=== PATIENT | male | born 1940 | race Caucasian/White ===

== ENCOUNTER 2019-12-16 20:20 | Emergency (ER) | payer OTHER, MEDICARE ==
[~2019-12-16] VITALS: Ht 180.3 cm; Wt 83.9 kg
[~2019-12-16 20:20] MED LIST: HYDACE5 PO; HYDCHL12.5 PO; LEVSOD25; METO25ER PO; OMEP20ER; VERA240ERB
[2019-12-16 21:33] LABS: BASOPHILS ABSOLUTE AUTO 0.02 K/mm3 (0.00-0.23); BASOPHILS PERCENT AUTO 0 % (0-2); EOSINOPHILS ABSOLUTE AUTO 0.17 K/mm3 (0.00-0.68); EOSINOPHILS PERCENT AUTO 3 % (0-6); Hematocrit 42.8 % (37.0-53.0); Hemoglobin 14.5 g/dL (13.5-17.5); IMMATURE GRAN ABSOLUTE AUTO 0.01 K/mm3 (0.00-0.10); IMMATURE GRAN PERCENT AUTO 0 % (0-1); LYMPHOCYTES ABSOLUTE AUTO 1.27 K/mm3 (0.84-5.20); LYMPHOCYTES PERCENT AUTO 25 % (21-46); MONOCYTES ABSOLUTE AUTO 0.38 K/mm3 (0.16-1.47); MONOCYTES PERCENT AUTO 7 % (4-13); Mean Corpuscular HGB Conc 33.9 g/dL (31.5-36.5); Mean Corpuscular Volume 88 fL (80-100); Mean Platelet Volume 10.5 fL (9.1-12.4); NEUTROPHILS PERCENT AUTO 64 % (41-73); Platelet Count 140 K/mm3 (150-400); RDW Standard Deviation 39.4 fL (35.1-46.3); Red Blood Cell Count 4.84 M/mm3 (4.30-5.90); White Blood Cell Count 5.15 K/mm3 (4.00-11.30)
[2019-12-16 21:55] LABS: Albumin, Blood 3.7 g/dL (3.4-5.0); Albumin/Globulin Ratio 1.3 (0.8-1.8); Bilirubin, Total 0.3 mg/dL (0.1-1.0); Bun/Creatinine Ratio 18.1 (12.0-20.0); Calcium, Blood 8.8 mg/dL (8.5-10.1); Creatinine, Blood 1.49 mg/dL (0.60-1.20); Globulin, Blood 2.9 g/dL (2.2-4.0); Potassium, Blood 3.4 mmol/L (3.5-5.5); Total Protein, Blood 6.6 g/dL (6.4-8.2)
[2019-12-16] MEDS ORDERED: LEVSOD75 PO (22:08)
[2019-12-16] MEDS ORDERED: Aspir 8181 MG PO (22:08)
[2019-12-16] MEDS ORDERED: CALICUM PO (22:09)
[2019-12-16] MEDS ORDERED: MOTION RELIEF25 MG PO (22:32)
== END 2019-12-16 22:43 | disposition home or self-care (01) ==
LOC: ER 20:20
PROVIDERS: Physician Assistant
DX: R55 Syncope and collapse (principal); K21.9 Gastro-esophageal reflux disease without esophagitis; I10 Essential (primary) hypertension; E03.9 Hypothyroidism, unspecified; Z79.899 Other long term (current) drug therapy
CPT/HCPCS: 36415; 70450; 80053; 84484; 85025; 93005; 93010; 99284-25

== ENCOUNTER 2020-10-27 06:52 | Day surgery (SDC) | payer MEDICARE ==
[~2020-10-27] VITALS: Ht 180.3 cm; Wt 88.4 kg
[~2020-10-27 06:52] MED LIST changes: +Aspir 8181 MG PO; +CALICUM PO; +LEVSOD75 PO; +MOTION RELIEF25 MG PO
--- NOTE | 2020-10-27 07:27 | NUR ---
10/27/20 0727 Chen Serrano 0719- ONE TETRACAINE DROP ADMINISTERED INTO L EYE 07- PLEDGET PLACED IN L LOWER EYE LID AND EYE WAS TAPED CLOSED WITH PAPER TAPE
[2020-10-27] MEDS ORDERED: OMEP20ER PO (07:31)
[2020-11-19] MEDS ORDERED: CALCIUM 600 +1 EA11 PO (09:39)
[2020-11-19] MEDS ORDERED: LEVO-T125 MC1 PO (09:39)
[2020-11-19] MEDS ORDERED: PRED FORTE5 M1 (09:40)
== END 2020-10-27 09:20 | disposition home or self-care (01) ==
LOC: ORSCSDS 06:52
PROVIDERS: Ophthalmology
PROC: 08RK3JZ Replacement of Left Lens with Synthetic Substitute, Percutaneous Approach (ICD-10-PCS; principal; 2020-10-27 08:00)
DX: H25.12 Age-related nuclear cataract, left eye (principal); I10 Essential (primary) hypertension; K21.9 Gastro-esophageal reflux disease without esophagitis; Z79.899 Other long term (current) drug therapy; Z79.82 Long term (current) use of aspirin
CPT/HCPCS: A9270; J2001; J2250; J3010; J3301; J7040; V2632

== ENCOUNTER 2020-11-26 09:53 | Day surgery (SDC) | payer MEDICARE ==
[~2020-11-26 09:53] MED LIST changes: +CALCIUM 600 +1 EA11 PO; +LEVO-T125 MC1 PO; +OMEP20ER PO; +PRED FORTE5 M1
== END 2020-11-26 10:30 | disposition home or self-care (01) ==
LOC: ORSCSDS 09:53
DX: H25.11 Age-related nuclear cataract, right eye (principal); Z53.9 Procedure and treatment not carried out, unspecified reason
CPT/HCPCS: A9270; J2001; J2250; J3010; J3301; J7040

== ENCOUNTER 2021-09-16 12:11 | Day surgery (SDC) | payer OTHER ==
[~2021-09-16] VITALS: Ht 180.3 cm; Wt 79.7 kg
[~2021-09-16 12:11] MED LIST changes: +CODACE30 PO; +COMPAZINE10 MG PO; +HYDR1TAB94 PO; +LEVSOD25 PO; +Protonix40 MG PO
--- NOTE | 2021-09-16 12:39 | NUR ---
09/16/21 [email or web address] Mame Edward CALL LIGHT WITHIN REACH. EYE DROP AT 1235 PLEDGETT AT 1237
--- NOTE | 2021-09-16 14:31 | NUR ---
09/16/21 1431 Chandana Iraheta LENSE IMPLANTED [id number] 13.5D ACRYSOF IQ TORIC IOL SN [id number] EXP 05-04-2025 RIGHT EYE
== END 2021-09-16 15:01 | disposition home or self-care (01) ==
LOC: ORSCSDS 12:11
PROVIDERS: Ophthalmology
PROC: 08RJ3JZ Replacement of Right Lens with Synthetic Substitute, Percutaneous Approach (ICD-10-PCS; principal; 2021-09-16 13:30)
DX: H25.11 Age-related nuclear cataract, right eye (principal); I10 Essential (primary) hypertension; I48.91 Unspecified atrial fibrillation; E03.9 Hypothyroidism, unspecified; Z79.899 Other long term (current) drug therapy; Z79.82 Long term (current) use of aspirin
CPT/HCPCS: J2001; J2250; J3010; J3301; J7040; V2632

== ENCOUNTER 2021-10-15 02:10 | Emergency (ER) | payer OTHER ==
[~2021-10-15] VITALS: Ht 180.3 cm; Wt 77.1 kg
[2021-10-15 02:42] LABS: BASOPHILS ABSOLUTE AUTO 0.02 K/mm3 (0.00-0.23); BASOPHILS PERCENT AUTO 0 % (0-2); EOSINOPHILS ABSOLUTE AUTO 0.18 K/mm3 (0.00-0.68); EOSINOPHILS PERCENT AUTO 4 % (0-6); Hemoglobin 13.7 g/dL (13.5-17.5); IMMATURE GRAN ABSOLUTE AUTO 0.01 K/mm3 (0.00-0.10); IMMATURE GRAN PERCENT AUTO 0 % (0-1); LYMPHOCYTES ABSOLUTE AUTO 1.78 K/mm3 (0.84-5.20); LYMPHOCYTES PERCENT AUTO 34 % (21-46); MONOCYTES ABSOLUTE AUTO 0.46 K/mm3 (0.16-1.47); MONOCYTES PERCENT AUTO 9 % (4-13); Mean Corpuscular HGB 29.2 pg (26.0-34.0); Mean Corpuscular HGB Conc 33.4 g/dL (31.5-36.5); Mean Corpuscular Volume 87 fL (80-100); Mean Platelet Volume 10.1 fL (9.1-12.4); NEUTROPHILS ABSOLUTE AUTO 2.73 K/mm3 (1.96-9.15); NEUTROPHILS PERCENT AUTO 53 % (41-73); Platelet Count 175 K/mm3 (150-400); RDW Coefficient Variation 13.4 % (11.7-14.2); Red Blood Cell Count 4.69 M/mm3 (4.30-5.90); White Blood Cell Count 5.18 K/mm3 (4.00-11.30)
[2021-10-15 03:11] LABS: Albumin, Blood 3.1 g/dL (3.4-5.0); Albumin/Globulin Ratio 0.9 (0.8-1.8); Bilirubin, Total 0.7 mg/dL (0.1-1.0); Bun/Creatinine Ratio 19.3 (12.0-20.0); Calcium, Blood 8.8 mg/dL (8.5-10.1); Creatinine, Blood 1.61 mg/dL (0.60-1.20); Globulin, Blood 3.6 g/dL (2.2-4.0); Potassium, Blood 3.3 mmol/L (3.5-5.5); Total Protein, Blood 6.7 g/dL (6.4-8.2)
== END 2021-10-15 04:03 | disposition home or self-care (01) ==
LOC: ER 02:10
PROVIDERS: Student in an Organized Health Care Education/Training Program
DX: K80.50 Calculus of bile duct without cholangitis or cholecystitis without obstruction (principal); I10 Essential (primary) hypertension; K21.9 Gastro-esophageal reflux disease without esophagitis; Z79.82 Long term (current) use of aspirin; Z79.899 Other long term (current) drug therapy; E03.9 Hypothyroidism, unspecified; I48.91 Unspecified atrial fibrillation
CPT/HCPCS: 36415; 76705; 80053; 83690; 85025; 93005; 93010; 96374; 99284-25; A9270; J1885

== ENCOUNTER 2021-12-02 08:23 | Day surgery (SDC) | payer OTHER ==
[~2021-12-02] VITALS: Ht 180.3 cm; Wt 77.9 kg
--- NOTE | 2021-12-02 13:31 | NUR ---
PT TO STEP. STERI STRIPS D/I. C/O MID ABD PAIN 02/20. TOLERATING WATER AND CRACKERS.
--- NOTE | 2021-12-02 14:04 | NUR ---
PT STATES NO RELIEF IN PAIN WITH PAIN PILL. STATES HE WOULD LIKE TO WAIT A BIT BEFORE TAKING ANOTHER PAIN PILL.
--- NOTE | 2021-12-02 14:13 | NUR ---
PT STATES HE DOES NOT FEEL HE SHOULD GO HOME DUE TO PAIN. STATE HE WOULD PREFER TO STAY THE NIGHT. DR. ROLDAN INFORMED OF PT STATUS BY COLOR CORRECTOR. VERBAL ORDER GIVEN FOR PT TO BE ADMITTED.
--- NOTE | 2021-12-02 14:26 | NUR ---
REPORT GIVEN TO FRANCK VILLAFANA RN.
--- NOTE | 2021-12-02 15:02 | NUR ---
PATIENT CAME BACK FROM DAY SURGERY TODAY 12/02/21 AT 1430. POD 0 LAP TORITO PATIENT IS ALERT AND ORIENTED X4. VS ARE WNL AND IS ON RA. PATIENT REPORTS A 7/10 PAIN AT THIS TIME. AWAITING DR. ROLDAN TO SEE IF WE CAN HAVE ANOTHER IV PAIN MEDICATION. HIS 4 LAP SITES ON HIS ABD HAVE STERI STRIPS ARE C/D/I. CALL LIGHT WITHIN REACH.
--- NOTE | 2021-12-02 16:35 | NUR ---
1630 ASSUMED CARE OF DERECK. PT REPORTS PAIN 01/21. ABD INCISIONS INTACT WITHOUT DRAINAGE
--- NOTE | 2021-12-02 16:38 | NUR ---
1610 ASSUMED CARE OF PATINET. PT REPORTS ABD PAIN OF 6-7/10/ FENTANYL 25 MCG GIVEN. PT ASSISTED TO BR WITH STANDBY ASSIST TO VOID CLEAR YELLOW URINE
--- NOTE | 2021-12-02 18:15 | NUR ---
SUMMARY PT REPORTS PAIN IS ADEQUATELY CONTROLLED AT 4/10. BELINDA PO FOOD AND FLUIDS WITHOUT NAUSEA. VOIDING CLEAR YELLOW URINE. ABD INCISIONS INTACT WITHOUT DRAINAGE
--- NOTE | 2021-12-03 04:46 | NUR ---
PT POST OP DAY 1 FOR LAP MARCOS, PT IS A&OX4, INDEPENDENT IN ROOM AND IS ABLE TO MAKE NEEDS KNOWN. LAP SITES LOOK GOOD AND ARE CLEAN AND DRY. PT ABLE TO TOLERATE SOLID FOODS AND LIQUIDS WITH NO COMPLAINTS OF NAUSEA. COMPLAINS OF PAIN THIS AM, MEDICATED WITH PRN NORCO. PT ABLE TO VOID THIS SHIFT WITH NO ISSUES. SLEEPS 7+ HOURS. WILL CONTINUE TO MONITOR.
[2021-12-03] MEDS ORDERED: DOCU100 PO (09:26)
[2021-12-03] MEDS ORDERED: HYDR1TAB94 PO (09:27)
[2021-12-03] MEDS ORDERED: MOTRIN IB200 MG (09:27)
--- NOTE | 2021-12-03 10:47 | NUR ---
DISCHARGE NOTE: PATIENT WAS EDUCATED ON DISCHARGE INSTRUCTIONS. PATIENT VERBALIZED UNDERSTANDING OF INSTRUCTIONS. HARD PERSCRIPTION WAS PLACED IN INSTRUCTIONS FOLDER. IV WAS TAKEN OUT AND WNL. PAIN WAS MANAGED WITH PO PAIN MEDICATIONS. HIS 4 LAP SITES ON ABD ARE C/D/I. TOLERATING PO INTAKE AND IS VOIDING. PATIENT IS DRESSED AND HAS ITEMS IN THE ROOM GATHERED. HE IS BEING WHEELCHAIRED OUT TO HIS FAMILY [employer] CAR TO BE TAKEN HOME.
== END 2021-12-03 10:44 | disposition home or self-care (01) ==
LOC: ORSCMMR 08:23 → ORD 10:00 → ORSCMMR 10:00 → SURS 14:49 → ORSCMMR 12-03 10:44
PROC: BF031ZZ Plain Radiography of Gallbladder and Bile Ducts using Low Osmolar Contrast (ICD-10-PCS; principal; 2021-12-03)
PROC: 0FT44ZZ Resection of Gallbladder, Percutaneous Endoscopic Approach (ICD-10-PCS; principal; 2021-12-03)
DX: K80.10 Calculus of gallbladder with chronic cholecystitis without obstruction (principal); I10 Essential (primary) hypertension; K21.9 Gastro-esophageal reflux disease without esophagitis; I48.91 Unspecified atrial fibrillation; Z79.82 Long term (current) use of aspirin; Z79.899 Other long term (current) drug therapy
CPT/HCPCS: 74300; 88304; A9270; C1729; J0690; J1100; J1885; J2370; J2405; J2704; J3010; J7120

== ENCOUNTER 2022-08-31 06:55 | Emergency (ER) | payer OTHER ==
[~2022-08-31] VITALS: Ht 180.3 cm; Wt 81.7 kg
[~2022-08-31 06:55] MED LIST changes: +DOCU100 PO; +MOTRIN IB200 MG
== END 2022-08-31 11:38 | disposition home or self-care (01) ==
LOC: ER 06:55
DX: K59.00 Constipation, unspecified (principal); K21.9 Gastro-esophageal reflux disease without esophagitis; E03.9 Hypothyroidism, unspecified; Z79.82 Long term (current) use of aspirin; Z79.890 Hormone replacement therapy
CPT/HCPCS: 74018

== ENCOUNTER → 2023-03-20 | Outpatient (CLI) | payer MEDICARE | LOC: LAB SHORT 15:27 → LAB 15:27 | DX: L08.0 Pyoderma (principal) | CPT/HCPCS: 87070; 87205 ==

== ENCOUNTER 2023-08-07 00:29 | Emergency (ER) | payer OTHER ==
[~2023-08-07] VITALS: Ht 180.3 cm; Wt 81.7 kg
[2023-08-07 02:08] LABS: BASOPHILS ABSOLUTE AUTO 0.01 K/mm3 (0.00-0.23); BASOPHILS PERCENT AUTO 0 % (0-2); EOSINOPHILS ABSOLUTE AUTO 0.01 K/mm3 (0.00-0.68); EOSINOPHILS PERCENT AUTO 0 % (0-6); Hematocrit 45.7 % (37.0-53.0); Hemoglobin 15.4 g/dL (13.5-17.5); IMMATURE GRAN ABSOLUTE AUTO 0.02 K/mm3 (0.00-0.10); IMMATURE GRAN PERCENT AUTO 0 % (0-1); LYMPHOCYTES ABSOLUTE AUTO 0.44 K/mm3 (0.84-5.20); LYMPHOCYTES PERCENT AUTO 7 % (21-46); MONOCYTES ABSOLUTE AUTO 0.45 K/mm3 (0.16-1.47); MONOCYTES PERCENT AUTO 7 % (4-13); Mean Corpuscular HGB 30.4 pg (26.0-34.0); Mean Corpuscular HGB Conc 33.7 g/dL (31.5-36.5); Mean Corpuscular Volume 90 fL (80-100); Mean Platelet Volume 10.4 fL (9.1-12.4); NEUTROPHILS ABSOLUTE AUTO 5.87 K/mm3 (1.96-9.15); NEUTROPHILS PERCENT AUTO 86 % (41-73); Platelet Count 108 K/mm3 (150-400); RDW Coefficient Variation 13.1 % (11.7-14.2); RDW Standard Deviation 42.8 fL (35.1-46.3); Red Blood Cell Count 5.06 M/mm3 (4.30-5.90)
[2023-08-07 02:14] LABS: Albumin, Blood 3.5 g/dL (3.4-5.0); Albumin/Globulin Ratio 1.1 (0.8-1.8); Bilirubin, Total 1.1 mg/dL (0.1-1.0); Bun/Creatinine Ratio 14.8 (12.0-20.0); Calcium, Blood 8.4 mg/dL (8.5-10.1); Creatinine, Blood 1.83 mg/dL (0.60-1.20); Globulin, Blood 3.2 g/dL (2.2-4.0); Magnesium, Blood 1.5 mg/dL (1.6-2.4); Potassium, Blood 3.5 mmol/L (3.5-5.5); Total Protein, Blood 6.7 g/dL (6.4-8.2)
[2023-08-07 02:37] LABS: Influenza A, PCR NEGATIVE (NEGATIVE); Influenza B, PCR NEGATIVE (NEGATIVE); Resp Syncytial Virus, PCR NEGATIVE (NEGATIVE)
[2023-08-07 03:01] LABS: SARS-Cov-2 (COVID-19) PCR, MMC POSITIVE (NEGATIVE)
[2023-08-07 05:15] VITALS: BP 141/72
== END 2023-08-07 05:23 | disposition home or self-care (01) ==
LOC: ER 00:29
PROVIDERS: Student in an Organized Health Care Education/Training Program
DX: U07.1 COVID-19 (principal); I10 Essential (primary) hypertension; K21.9 Gastro-esophageal reflux disease without esophagitis; E03.9 Hypothyroidism, unspecified; Z87.19 Personal history of other diseases of the digestive system; N40.0 Benign prostatic hyperplasia without lower urinary tract symptoms; I48.91 Unspecified atrial fibrillation; I47.10 Supraventricular tachycardia, unspecified; Z79.82 Long term (current) use of aspirin; Z79.899 Other long term (current) drug therapy
CPT/HCPCS: 0241U; 71046; 80053; 83735; 85025; 93005; 93010; J3475

== ENCOUNTER 2024-07-21 13:51 | Emergency (ER) | payer OTHER ==
[~2024-07-21] VITALS: Ht 180.3 cm; Wt 83.1 kg
[2024-07-21] MEDS ORDERED: Methocarbamol 500 MG Tab PO ONE (14:05)
[2024-07-21] MEDS ORDERED: Ketorolac Tromethamine 15mg Vial IV ONE (14:10)
[2024-07-21 14:17] LABS: BASOPHILS ABSOLUTE AUTO 0.04 K/mm3 (0.00-0.23); BASOPHILS PERCENT AUTO 0 % (0-2); EOSINOPHILS ABSOLUTE AUTO 0.16 K/mm3 (0.00-0.68); EOSINOPHILS PERCENT AUTO 2 % (0-6); Hematocrit 44.9 % (37.0-53.0); Hemoglobin 15.2 g/dL (13.5-17.5); IMMATURE GRAN ABSOLUTE AUTO 0.02 K/mm3 (0.00-0.10); IMMATURE GRAN PERCENT AUTO 0 % (0-1); LYMPHOCYTES ABSOLUTE AUTO 3.03 K/mm3 (0.84-5.20); LYMPHOCYTES PERCENT AUTO 32 % (21-46); MONOCYTES ABSOLUTE AUTO 0.86 K/mm3 (0.16-1.47); MONOCYTES PERCENT AUTO 9 % (4-13); Mean Corpuscular HGB 30.5 pg (26.0-34.0); Mean Corpuscular HGB Conc 33.9 g/dL (31.5-36.5); Mean Corpuscular Volume 90 fL (80-100); Mean Platelet Volume 9.5 fL (9.1-12.4); NEUTROPHILS ABSOLUTE AUTO 5.37 K/mm3 (1.96-9.15); NEUTROPHILS PERCENT AUTO 57 % (41-73); Platelet Count 259 K/mm3 (150-400); RDW Standard Deviation 39.7 fL (35.1-46.3); Red Blood Cell Count 4.99 M/mm3 (4.30-5.90); White Blood Cell Count 9.48 K/mm3 (4.00-11.30)
[2024-07-21 14:44] LABS: Albumin, Blood 3.5 g/dL (3.4-5.0); Albumin/Globulin Ratio 0.9 (0.8-1.8); Bilirubin, Total 0.6 mg/dL (0.1-1.0); Bun/Creatinine Ratio 18.1 (12.0-20.0); Calcium, Blood 9.5 mg/dL (8.5-10.1); Creatinine, Blood 1.93 mg/dL (0.60-1.20); Globulin, Blood 3.9 g/dL (2.2-4.0); Potassium, Blood 3.5 mmol/L (3.5-5.5); Total Protein, Blood 7.4 g/dL (6.4-8.2)
[2024-07-21] MEDS ORDERED: NS 1,000 ML IV SCH (17:00)
[2024-07-21 17:45] LABS: Anti-Xa UFH, PHA Monitoring <0.10 IU/mL; International Normalized Ratio 1.04; Prothrombin Time Results 11.1 Sec (9.7-11.5)
[2024-07-21] MEDS ORDERED: Dose Adjust by Pharmacy XX STA (17:57)
[2024-07-21] MEDS ORDERED: Heparin Sodium,Porcine/0.5 NS 500 ML IV SCH (18:00)
[2024-07-21] MEDS ORDERED: Heparin Sodium 5000 Units/ML 1ML MDV IV ONE (18:00)
[2024-07-21 18:45] VITALS: BP 137/73
== END 2024-07-21 19:50 | disposition short-term general hospital (02) ==
LOC: ER 13:51
PROVIDERS: Internal Medicine Endocrinology, Diabetes & Metabolism; Physician Assistant
DX: I77.9 Disorder of arteries and arterioles, unspecified (principal); I48.91 Unspecified atrial fibrillation; I10 Essential (primary) hypertension; E03.9 Hypothyroidism, unspecified; K21.9 Gastro-esophageal reflux disease without esophagitis; N40.0 Benign prostatic hyperplasia without lower urinary tract symptoms; Z86.16 Personal history of COVID-19; Z79.82 Long term (current) use of aspirin; Z79.890 Hormone replacement therapy; Z79.899 Other long term (current) drug therapy
CPT/HCPCS: 73552; 80053; 85025; 85520; 85610; 85730; 93926; 96374; 96375; 99285-25; A9270; J1644; J1885; J7030

== ENCOUNTER 2024-09-16 03:10 | Emergency (ER) | payer OTHER ==
[~2024-09-16] VITALS: Ht 180.3 cm; Wt 90.3 kg
[2024-09-16 03:35] VITALS: BP 143/94
[2024-09-16] MEDS ORDERED: ELIQUIS5 M2 PO (03:40)
== END 2024-09-16 04:39 | disposition home or self-care (01) ==
LOC: ER 03:10
DX: R51.9 Headache, unspecified (principal); Z76.0 Encounter for issue of repeat prescription; Z79.01 Long term (current) use of anticoagulants; E03.9 Hypothyroidism, unspecified; K21.9 Gastro-esophageal reflux disease without esophagitis; I48.91 Unspecified atrial fibrillation; Z79.899 Other long term (current) drug therapy
CPT/HCPCS: 99283

== ENCOUNTER 2024-10-11 04:43 | Emergency (ER) | payer OTHER ==
[~2024-10-11] VITALS: Ht 180.3 cm; Wt 86.2 kg
[~2024-10-11 04:43] MED LIST changes: +ELIQUIS5 M2 PO
[2024-10-11] MEDS ORDERED: Ondansetron HCl 2 MG / ML 2ML Vial IV PRN (05:05)
[2024-10-11 05:18] LABS: BASOPHILS ABSOLUTE AUTO 0.03 K/mm3 (0.00-0.23); BASOPHILS PERCENT AUTO 1 % (0-2); EOSINOPHILS ABSOLUTE AUTO 0.17 K/mm3 (0.00-0.68); EOSINOPHILS PERCENT AUTO 3 % (0-6); Hematocrit 44.1 % (37.0-53.0); Hemoglobin 14.7 g/dL (13.5-17.5); IMMATURE GRAN ABSOLUTE AUTO 0.02 K/mm3 (0.00-0.10); IMMATURE GRAN PERCENT AUTO 0 % (0-1); LYMPHOCYTES ABSOLUTE AUTO 1.28 K/mm3 (0.84-5.20); LYMPHOCYTES PERCENT AUTO 19 % (21-46); MONOCYTES ABSOLUTE AUTO 0.57 K/mm3 (0.16-1.47); MONOCYTES PERCENT AUTO 9 % (4-13); Mean Corpuscular HGB 29.8 pg (26.0-34.0); Mean Corpuscular HGB Conc 33.3 g/dL (31.5-36.5); Mean Corpuscular Volume 90 fL (80-100); Mean Platelet Volume 10.1 fL (9.1-12.4); NEUTROPHILS ABSOLUTE AUTO 4.58 K/mm3 (1.96-9.15); NEUTROPHILS PERCENT AUTO 69 % (41-73); Platelet Count 139 K/mm3 (150-400); RDW Coefficient Variation 13.1 % (11.7-14.2); RDW Standard Deviation 42.9 fL (35.1-46.3); Red Blood Cell Count 4.93 M/mm3 (4.30-5.90); White Blood Cell Count 6.65 K/mm3 (4.00-11.30)
[2024-10-11 05:57] LABS: Albumin, Blood 3.7 g/dL (3.4-5.0); Albumin/Globulin Ratio 1.2 (0.8-1.8); Bilirubin, Total 0.7 mg/dL (0.1-1.0); Creatinine, Blood 1.87 mg/dL (0.60-1.20); Globulin, Blood 3.1 g/dL (2.2-4.0); Total Protein, Blood 6.8 g/dL (6.4-8.2)
[2024-10-11] MEDS ORDERED: Acetaminophen 500 MG Tab PO ONE (07:20)
[2024-10-11] MEDS ORDERED: dilTIAZem HCL 90 MG CAP.ER.12H PO ONE (08:25)
[2024-10-11] MEDS ORDERED: dilTIAZem HCL 120 MG CAP.CD PO ONE (08:30)
[2024-10-11] MEDS ORDERED: DILT120 PO (09:26)
[2024-10-11 09:45] VITALS: BP 118/79
== END 2024-10-11 10:30 | disposition home or self-care (01) ==
LOC: ER 04:43
PROVIDERS: Emergency Medicine
DX: I48.91 Unspecified atrial fibrillation (principal); I10 Essential (primary) hypertension; K21.9 Gastro-esophageal reflux disease without esophagitis; Z79.1 Long term (current) use of non-steroidal anti-inflammatories (NSAID); Z79.899 Other long term (current) drug therapy; Z79.01 Long term (current) use of anticoagulants
CPT/HCPCS: 71046; 80053; 83690; 84484; 85025; 85379; A9270

== ENCOUNTER 2024-10-20 13:31 | Emergency (ER) | payer OTHER ==
[~2024-10-20] VITALS: Ht 180.3 cm; Wt 83.9 kg
[~2024-10-20 13:31] MED LIST changes: +DILT120 PO
[2024-10-20 13:44] VITALS: BP 150/93
[2024-10-20] MEDS ORDERED: Magnesium Citrate 300 ML BTL PO ONE ×2 (16:30→17:05)
== END 2024-10-20 17:26 | disposition home or self-care (01) ==
LOC: ER 13:31
DX: K59.00 Constipation, unspecified (principal); R15.9 Full incontinence of feces; I10 Essential (primary) hypertension; K21.9 Gastro-esophageal reflux disease without esophagitis; Z79.899 Other long term (current) drug therapy; Z79.1 Long term (current) use of non-steroidal anti-inflammatories (NSAID); Z79.01 Long term (current) use of anticoagulants
CPT/HCPCS: 74018; 99283-25; A9270